=== PATIENT | male | born 1965 | race Caucasian/White ===

== ENCOUNTER 2017-06-11 07:47 | Day surgery (SDC) | payer OTHER ==
[~2017-06-11] VITALS: Ht 162.6 cm; Wt 39.7 kg
[2017-06-11] VITALS (15 sets, daily range): BP systolic 119–158; BP diastolic 88–126; PULSE 78–99; TEMP 36.4–37; O2SAT 94–100; Ht 162.6 cm; Wt 39.7 kg
[~2017-06-11 07:47] MED LIST: ADVIN25/60 INH; ALBU0.08 INH; ALBU1AER9 INH
[2017-06-11] MEDS ORDERED: MIDAZOLAM HCL 5 MG/ML 2ML VIAL IV ONE (07:48)
[2017-06-11] MEDS ORDERED: FENTANYL CITRATE 100 MCG 2 ML CARP IV ONE (07:48)
--- NOTE | 2017-06-11 09:53 | History & Physical Bridge Note ---
H&P Re-Evaluation Bridge Note: I have examined the patient, reviewed the History & Physical and in the interval since the performance of the History & Physical I have noted the following changes of clinical significance: No changes noted
--- NOTE | 2017-06-11 09:54 | Procedure Note ---
Pre-Mod Sedation Assessment General Date of Moderate Sedation: Jun 11, 2017. Vital Signs: Vital Signs Past 12 Hours Date Time Temp Pulse Resp B/P (MAP) Pulse Ox O2 Delivery O2 Flow Rate FiO2 06/11/17 09:45 37.0 89 20 148/102 95 Nasal Cannula 2.5 06/11/17 08:14 37 89 20 148/102 (117) 95 Nasal Cannula 2.5 Review Cardiovascular: regular rate, rhythm, no edema, no gallop, no JVD, no murmur Abdomen: normal bowel sounds, non tender, soft, no organomegaly, no pulsatile mass, normal rectal exam Lungs: + pertinent finding (expiratory wheezing noted bilaterally) Airway Class: IV Pre-Sedation Airway Assessment Oral Cavity: Dentures Able to Visualize Vocal Cords: Yes Short Thick Neck: No Hx of Sleep Apnea: No Smoking Status: Current Some Day Smoker Mallampati Classification: Class II ASA Classification: Class III Procedure Planning Contraindications-for Mod Sed: None Yes Notes The planned sedation has been discussed with the patient and consent obtained. I have identified the patient, determined the appropriateness of sedation and have assessed the patient immediately prior to the procedure. All medicine(s) and interventions are by my order.
[2017-06-11] MEDS ORDERED: MIDAZOLAM HCL 5 MG/ML 1 ML VIAL IV SCH (10:30)
[2017-06-11] MEDS ORDERED: FENTANYL CITRATE INJ 50 MCG/1 ML 2 ML VIAL IV SCH (10:30)
[2017-06-11] MEDS ORDERED: NURSING VERBAL MED ORDER ONE (10:45)
--- NOTE | 2017-06-11 11:05 | Procedure Note ---
Post-Moderate Sedation Plan General Date of Moderate Sedation Jun 11, 2017. Vital Signs: Vital Signs Past 12 Hours Date Time Temp Pulse Resp B/P (MAP) Pulse Ox O2 Delivery O2 Flow Rate FiO2 06/11/17 10:50 36.4 87 24 147/101 94 Nasal Cannula 2 06/11/17 10:30 98 20 144/96 98 Nasal Cannula 4.0 06/11/17 10:25 99 20 158/126 99 Mask 8.0 06/11/17 10:20 92 16 156/104 100 Mask 8.0 06/11/17 10:15 96 18 119/88 100 Mask 8.0 06/11/17 10:10 99 18 127/100 100 Mask 8.0 06/11/17 10:05 92 18 132/105 100 Mask 8.0 06/11/17 10:00 98 18 154/98 98 Mask 5.0 06/11/17 09:45 37.0 89 20 148/102 95 Nasal Cannula 2.5 06/11/17 08:14 37 89 20 148/102 (117) 95 Nasal Cannula 2.5 Review - Discharge Plan Post Moderate Sedation Plan: On clinical assessment, the patient appears to have tolerated the conscious sedation without complications. Patient is recovering as anticipated. Patient will continue to be monitored by nursing and may be discharged when conscious sedation discharge criteria are met.
--- NOTE | 2017-06-11 11:07 | Bronchoscopy Procedure Note ---
Bronchoscopy Procedure Note Procedure: Bronchoscopy, conscious sedation, bronchial lavage Consent: Obtained through the patient placed into the chart Pre-procedural diagnosis: Chronic cough Post-procedural diagnosis: Chronic cough Start time: 1009 End time: 1023 Total time: 14 minutes Analgesia: 2% liquid lidocaine: Via nebulizer 4% gel lidocaine: Via right naris 2% liquid lidocaine: Via bronchoscopy Sedation: Versed IV: 3 mg Fentanyl IV: 75g Procedure: The Olympus video bronchoscope was used for this procedure and passed down through the right naris Right naris/posterior naris/posterior oropharynx: Anatomically within normal limits, margarito signs of postnasal drip with posterior oral pharyngeal cobblestoning/erythema Glottis: Anatomically within normal limits Vocal cords: Proper abduction and abduction, anatomically within normal limits Subglottis/trachea/[place]th: Anatomically within normal limits Right bronchial tree: Right mainstem bronchus: Anatomically within normal limits Right upper lobe: Anatomically within normal limits Bronchus intermedius: Anatomically within normal limits Right middle lobe: Anatomically within normal limits Right lower lobe: Anatomically within normal limits Findings: No significant findings noted Left bronchial tree: Left mainstem bronchus: Anatomically within normal limits Left upper lobe: Anatomically within normal limits Lingula: Anatomically within normal limits Left lower lobe: Anatomically within normal limits Findings: No significant findings noted Bronchial alveolar lavage: Right upper lobe EBL: None Complications: None Follow-up: In the Pulmonary Clinic
--- NOTE | 2017-06-11 11:09 | Discharge Instructions ---
Discharge Instructions Date of Service Jun 11, 2017. Admission Reason for Admission: Copd, Shortness Of Breath Discharge Discharge Diagnosis / Problem: Chronic cough, chronic rhinitis Discharge Goals Goal(s): Diagnostic testing Activity Recommendations Activity Limitations: resume your previous activity . Current Hospital Diet Patient's current hospital diet: Discharge Diet Recommended Diet: Regular Diet Procedures Procedures Performed: Bronchoscopy, conscious sedation, bronchial washing of the right upper lobe Pending Studies Studies pending at discharge: no Medical Emergencies . Who to Call and When: Medical Emergencies: If at any time you feel your situation is an emergency, please call 911 immediately. . Non-Emergent Contact Non-Emergency issues call your: [employer] Worker . . "Provider Documentation" section prepared by Du De. . VTE Core Measure Inpt VTE Proph given/why not?: Treatment not indicated
[2017-07-05 17:13] LABS: HERPES SIMPLEX CULT SOURCE OTHER-BAL RUL; HERPES SIMPLEX VIRUS CULT NOT ISOLATED (NOT ISOLATED)
== END 2017-06-11 13:38 | disposition home or self-care (01) ==
LOC: C.ACU 07:47
PROVIDERS: ATTEND Internal Medicine Critical Care Medicine
DX: J43.9 Emphysema, unspecified (principal); M81.0 Age-related osteoporosis without current pathological fracture; N28.1 Cyst of kidney, acquired; Z87.891 Personal history of nicotine dependence; Z86.711 Personal history of pulmonary embolism; Z86.19 Personal history of other infectious and parasitic diseases; Z83.3 Family history of diabetes mellitus